=== PATIENT | female | born 1990 | race Two or more races ===

== ENCOUNTER 2022-09-30 12:54 | Emergency (ER) | payer MEDICAID, OTHER ==
[~2022-09-30] VITALS: Ht 165.1 cm; Wt 70.7 kg
[2022-09-30 13:48] LABS: Basophils # (auto) 0 10 ^3/uL (0-0.2); Basophils % (auto) 0.6 % (0.0-2.0); Eosinophils # (auto) 0 10 ^3/uL (0-0.8); Eosinophils % (auto) 0.8 % (0.0-7.0); Hematocrit 39.1 % (36.0-46.0); Hemoglobin 13.3 g/dL (12.2-16.2); Lymphocytes # (auto) 1.3 10 ^3/uL (0.4-5.4); Lymphocytes % (auto) 32.5 % (10.0-50.0); Mean Corpuscular Hemoglobin 27.9 pg (28.0-32.0); Mean Corpuscular Volume 82.1 fL (80.0-100.0); Monocytes # (auto) 0.3 10 ^3/uL (0-1.3); Monocytes % (auto) 7.7 % (0.0-12.0); Neutrophils # (auto) 2.2 10 ^3/uL (1.6-8.6); Neutrophils % (auto) 58.4 % (37.0-80.0); Nucleated Red Blood Cells % 0.1 %; Red Blood Cells 4.77 10^6/uL (4.0-5.20); Red Cell Distribution Width 14.3 % (11.8-14.3); White Blood Cell 3.9 10^3/uL (4.4-10.8)
[2022-09-30 14:32] LABS: Urine Bacteria NONE SEEN /hpf (None Seen); Urine Blood 1+ /uL (Negative); Urine Specific Gravity 1.004 (1.001-1.035); Urine WBC 1 /hpf (0 - 5)
[2022-09-30 15:09] LABS: Albumin 3.7 g/dL (3.4-5.0); BUN/Creatinine Ratio 8.6; Calcium 8.6 mg/dL (8.5-10.1); Potassium 3.8 mmol/L (3.5-5.1)
[2022-09-30 15:12] LABS: Bilirubin, Total 0.2 mg/dL (0.2-1.0); Total Protein 7.3 g/dL (6.4-8.2)
[2022-09-30 18:08] VITALS: BP 110/69
== END 2022-09-30 18:10 | disposition home or self-care (01) ==
LOC: ER 12:54
DX: R07.89 Other chest pain (principal); E78.5 Hyperlipidemia, unspecified
CPT/HCPCS: 36415; 71045; 80053; 81001; 84484; 85025; 93005

== ENCOUNTER 2022-10-01 16:20 | Emergency (ER) | payer MEDICAID ==
[~2022-10-01] VITALS: Ht 165.1 cm; Wt 75.0 kg
[2022-10-01 17:09] LABS: Basophils # (auto) 0 10 ^3/uL (0-0.2); Basophils % (auto) 0.4 % (0.0-2.0); Eosinophils # (auto) 0 10 ^3/uL (0-0.8); Eosinophils % (auto) 0.3 % (0.0-7.0); Hematocrit 38.9 % (36.0-46.0); Hemoglobin 13.2 g/dL (12.2-16.2); Lymphocytes # (auto) 1.1 10 ^3/uL (0.4-5.4); Lymphocytes % (auto) 23.7 % (10.0-50.0); Mean Corpuscular Hemoglobin 28.1 pg (28.0-32.0); Mean Corpuscular Volume 82.6 fL (80.0-100.0); Monocytes # (auto) 0.2 10 ^3/uL (0-1.3); Monocytes % (auto) 3.6 % (0.0-12.0); Neutrophils # (auto) 3.2 10 ^3/uL (1.6-8.6); Nucleated Red Blood Cells % 0.1 %; Red Blood Cells 4.71 10^6/uL (4.0-5.20); Red Cell Distribution Width 14.3 % (11.8-14.3); White Blood Cell 4.5 10^3/uL (4.4-10.8)
[2022-10-01] MEDS ORDERED: ACETAMINOPHEN 325 MG TAB PO ONE (17:15)
[2022-10-01 17:29] LABS: INR 0.95 (0.9-1.15); Partial Thromboplastin Time 25.5 sec (24.6-33.4)
[2022-10-01 17:46] LABS: Albumin 4.1 g/dL (3.4-5.0); BUN/Creatinine Ratio 8.1; Bilirubin, Total 0.4 mg/dL (0.2-1.0); Calcium 8.6 mg/dL (8.5-10.1); Magnesium 2.1 mg/dL (1.6-2.6); Potassium 3.6 mmol/L (3.5-5.1); Total Protein 7.4 g/dL (6.4-8.2)
[2022-10-01 22:35] VITALS: BP 125/67
== END 2022-10-01 23:12 | disposition home or self-care (01) ==
LOC: ER 16:20 → EDBD 16:20 → ER 22:38
DX: F41.8 Other specified anxiety disorders (principal)
CPT/HCPCS: 36415; 71045; 80053; 83735; 83880; 84484; 85025; 85610; 85730; 93005

== ENCOUNTER 2023-07-18 20:55 | Emergency (ER) | payer MEDICAID ==
[~2023-07-18] VITALS: Ht 162.6 cm; Wt 80.0 kg
[2023-07-18] MEDS ORDERED: methylPREDNISolone SOD SUCC 125 MG/2 ML VL IM ONE (21:15)
[2023-07-18] MEDS ORDERED: LEVO500T91 PO (21:49)
[2023-07-18 21:55] LABS: Basophils # (auto) 0 10 ^3/uL (0-0.2); Basophils % (auto) 0.7 % (0.0-2.0); Eosinophils # (auto) 0 10 ^3/uL (0-0.8); Eosinophils % (auto) 0.9 % (0.0-7.0); Hematocrit 37.3 % (36.0-46.0); Hemoglobin 12.4 g/dL (12.2-16.2); Lymphocytes # (auto) 1.2 10 ^3/uL (0.4-5.4); Lymphocytes % (auto) 25.9 % (10.0-50.0); Mean Corpuscular Hemoglobin 27.7 pg (28.0-32.0); Mean Corpuscular Hgb Conc. 33.4 g/dL (32.0-36.0); Monocytes # (auto) 0.3 10 ^3/uL (0-1.3); Neutrophils % (auto) 66.5 % (37.0-80.0); Nucleated Red Blood Cells % 0.1 %; Red Blood Cells 4.49 10^6/uL (4.0-5.20); Red Cell Distribution Width 13.9 % (11.8-14.3); White Blood Cell 4.6 10^3/uL (4.4-10.8)
[2023-07-18 22:16] LABS: Alanine Aminotransferase 27 U/L (7-40); Alkaline Phosphatase 101 U/L (46-116); Anion Gap 12 (5-15); Aspartate Aminotransferase 20 U/L (13-40); Calcium 9.6 mg/dL (8.5-10.1); Carbon Dioxide 21 mmol/L (20-30); Chloride 107 mmol/L (98-107); Glucose 93 mg/dL (74-106); Potassium 3.8 mmol/L (3.5-5.1); Sodium 140 mmol/L (136-145)
[2023-07-18 22:17] LABS: Albumin 4.5 g/dL (3.2-4.8); Bilirubin, Total 0.3 mg/dL (0.2-1.0); Total Protein 7.4 g/dL (5.7-8.2)
[2023-07-18 22:20] LABS: BUN/Creatinine Ratio 6.8 (10.0-20.0); Blood Urea Nitrogen < 5 mg/dL (9-23)
[2023-07-18 22:40] VITALS: PULSE 92; RESP 18; O2SAT 96
[2023-07-18] MEDS ORDERED: methylPREDNISolone SOD SUCC 125 MG/2 ML VL ONE (22:54)
[2023-07-18] MEDS ORDERED: PRED20TA2 PO (23:34)
[2023-07-18 23:40] VITALS: BP 127/74; PULSE 92; RESP 20; O2SAT 96
[2023-07-18] MEDS ORDERED: cefTRIAXone SOD 1,000 MG VL IM ONE (23:45)
== END 2023-07-18 23:48 | disposition home or self-care (01) ==
LOC: ER 20:55 → EDBD 20:55 → ER 23:48
DX: J06.9 Acute upper respiratory infection, unspecified (principal)
CPT/HCPCS: 36415; 71045; 80053; 85025; 96372; 99284; J2930

== ENCOUNTER 2024-02-08 23:08 | Inpatient (IN) | payer MEDICAID ==
[~2024-02-08] VITALS: Ht 165.1 cm; Wt 89.7 kg
[~2024-02-08 23:08] MED LIST: LEVO500T91 PO; PRED20TA2 PO
[2024-02-09 00:16] LABS: Basophils # (auto) 0 10 ^3/uL (0-0.2); Basophils % (auto) 0.6 % (0.0-2.0); Eosinophils # (auto) 0 10 ^3/uL (0-0.8); Eosinophils % (auto) 0.8 % (0.0-7.0); Hematocrit 38.7 % (36.0-46.0); Hemoglobin 13.1 g/dL (12.2-16.2); Lymphocytes # (auto) 1.5 10 ^3/uL (0.4-5.4); Mean Corpuscular Hemoglobin 27.8 pg (28.0-32.0); Mean Corpuscular Hgb Conc. 33.8 g/dL (32.0-36.0); Mean Corpuscular Volume 82.4 fL (80.0-100.0); Monocytes # (auto) 0.3 10 ^3/uL (0-1.3); Monocytes % (auto) 6.2 % (0.0-12.0); Neutrophils % (auto) 61.4 % (37.0-80.0); Red Cell Distribution Width 14.9 % (11.8-14.3); White Blood Cell 4.8 10^3/uL (4.4-10.8)
[2024-02-09 00:33] LABS: Alanine Aminotransferase 33 U/L (7-40); Albumin 4.5 g/dL (3.2-4.8); Alkaline Phosphatase 111 U/L (46-116); Anion Gap 11 (5-15); Aspartate Aminotransferase 22 U/L (13-40); BUN/Creatinine Ratio 10.7 (10.0-20.0); Bilirubin, Total 0.3 mg/dL (0.2-1.0); Blood Urea Nitrogen 8 mg/dL (9-23); Calcium 9.6 mg/dL (8.7-10.4); Carbon Dioxide 23 mmol/L (20-30); Chloride 106 mmol/L (98-107); Glucose 115 mg/dL (74-106); Lipase 42 U/L (12-53); Potassium 3.5 mmol/L (3.5-5.1); Sodium 140 mmol/L (136-145); Total Protein 7.3 g/dL (5.7-8.2)
[2024-02-09] MEDS: SODIUM CHLORIDE 0.9% 1,000 ML IVB ONE (01:24)
[2024-02-09] MEDS: ONDANSETRON HCL 4 MG/2 ML VIAL IV ONE (01:24)
[2024-02-09] MEDS: IOHEXOL 300 MG/ML 100ML BOTTLE IJ ONE (02:13)
[2024-02-09 04:45] VITALS: PULSE 98; RESP 19; O2SAT 98
[2024-02-09] MEDS: SODIUM CHLOR 0.9% PF (SALINE LOCK) 10ML VIAL/SYR IV SCH (05:41)
[2024-02-09] MEDS: MORPHINE SULFATE INJ 2 MG/ml SYRG IV PRN (05:50)
[2024-02-09] MEDS ORDERED: MORPHINE SULFATE INJ 2 MG/ml SYRG IV PRN (06:15)
[2024-02-09] MEDS ORDERED: NITROGLYCERIN 0.4 MG SL TAB SL PRN (06:15)
[2024-02-09 08:00] VITALS: PULSE 98; RESP 19; O2SAT 98
[2024-02-09 09:47] LABS: Urine Bacteria None Seen /hpf (None Seen)
[2024-02-09 09:55] LABS: Urine Blood 1+ /uL (Negative); Urine Clarity Clear (Clear); Urine Protein, UAD Negative (Negative); Urine Urobilinogen Normal (Negative); Urine WBC 1 /hpf (0 - 5); Urine pH 6.5 (5.0-9.0)
[2024-02-09 09:58] LABS: Urine Color Yellow (Yellow)
[2024-02-09] MEDS: MAALOX PLUS or MAALOX 30 ML PO ONE (12:07)
[2024-02-09] MEDS: DONNATAL 5ml ORAL Elix (BELLADONNA ALK-PHENOBARB) PO ONE (12:07)
[2024-02-09] MEDS: LIDOCAINE VISCOUS 2% 15ML UD MT ONE (12:07)
[2024-02-09] MEDS: ONDANSETRON HCL 4 MG/2 ML VIAL IV PRN (12:19)
[2024-02-09 22:00] VITALS: BP 111/71; PULSE 68; RESP 16; TEMP 98.1; O2SAT 96
[2024-02-10] VITALS (10 sets, daily range): BP systolic 103–132; BP diastolic 69–78; PULSE 65–94; RESP 16–20; TEMP 97.6–98.8; O2SAT 91–99
[2024-02-10 05:53] LABS: Basophils # (auto) 0 10 ^3/uL (0-0.2); Basophils % (auto) 0.6 % (0.0-2.0); Eosinophils # (auto) 0 10 ^3/uL (0-0.8); Eosinophils % (auto) 0.7 % (0.0-7.0); Hematocrit 37.9 % (36.0-46.0); Hemoglobin 12.7 g/dL (12.2-16.2); Lymphocytes # (auto) 1.3 10 ^3/uL (0.4-5.4); Lymphocytes % (auto) 38.6 % (10.0-50.0); Mean Corpuscular Hemoglobin 27.6 pg (28.0-32.0); Mean Corpuscular Hgb Conc. 33.6 g/dL (32.0-36.0); Mean Corpuscular Volume 82.2 fL (80.0-100.0); Monocytes # (auto) 0.2 10 ^3/uL (0-1.3); Monocytes % (auto) 6.4 % (0.0-12.0); Neutrophils # (auto) 1.8 10 ^3/uL (1.6-8.6); Neutrophils % (auto) 53.7 % (37.0-80.0); Nucleated Red Blood Cells % 0.2 %; Red Blood Cells 4.61 10^6/uL (4.0-5.20); Red Cell Distribution Width 14.3 % (11.8-14.3); White Blood Cell 3.3 10^3/uL (4.4-10.8)
[2024-02-10 06:12] LABS: Alanine Aminotransferase 30 U/L (7-40); Albumin 3.9 g/dL (3.2-4.8); Alkaline Phosphatase 89 U/L (46-116); Anion Gap 8 (5-15); Aspartate Aminotransferase 22 U/L (13-40); Calcium 9.3 mg/dL (8.7-10.4); Carbon Dioxide 23 mmol/L (20-30); Chloride 107 mmol/L (98-107); Glucose 88 mg/dL (74-106); Potassium 3.5 mmol/L (3.5-5.1); Sodium 138 mmol/L (136-145)
[2024-02-10 06:13] LABS: Bilirubin, Total 0.6 mg/dL (0.2-1.0); Total Protein 6.6 g/dL (5.7-8.2)
[2024-02-10 06:17] LABS: BUN/Creatinine Ratio 8.1 (10.0-20.0); Blood Urea Nitrogen < 5 mg/dL (9-23)
[2024-02-10] MEDS ORDERED: IOHEXOL 350 MG/ML 100ML IJ ONE (08:19)
[2024-02-10 08:48] LABS: Hepatitis B Surface Antigen Negative (Negative)
[2024-02-10 09:09] LABS: Hepatitis C Antibody Negative (Negative)
[2024-02-10] MEDS: HYDROcodone-ACET 5/325MG TAB PO PRN (18:33)
[2024-02-10] MEDS: DOCUSATE SOD 100 MG CAP PO PRN (18:33)
[2024-02-11] VITALS (10 sets, daily range): BP systolic 101–127; BP diastolic 61–85; PULSE 75–105; RESP 16–18; TEMP 97.8–98.3; O2SAT 91–97
[2024-02-11] MEDS: ACETAMINOPHEN 325 MG TAB PO PRN (00:27)
[2024-02-11] MEDS: cefTRIAXone 1GM/50ML D5W 50 ML IV SCH (09:32)
[2024-02-11 16:11] LABS: Amphetamine Screen, Urine Neg (NEGATIVE); Barbiturate Scree,Urine Neg (NEGATIVE); Benzodiazephine Screen, Urine Neg (NEGATIVE); Cocaine Screen, Urine Neg (NEGATIVE); Opiate Scree,Urine Pos (NEGATIVE)
[2024-02-11 16:12] LABS: Cannabinoid Screen, Urine Neg (NEGATIVE); Phencyclidine Screen, Urine Neg (NEGATIVE)
[2024-02-11] MEDS ORDERED: LORazepam 2MG/ML-1ML VIAL IV PRN (20:15)
[2024-02-11] MEDS: DICYCLOMINE HCL 10 MG CAP PO PRN (21:22)
[2024-02-11] MEDS: POLYETHYLENE GLYCOL 17 GM PWDR PO ONE (21:22)
[2024-02-12 01:00] VITALS: BP 106/61; PULSE 86; RESP 18; TEMP 97.7; O2SAT 93
[2024-02-12 05:00] VITALS: BP 99/61; PULSE 82; RESP 18; TEMP 97.4; O2SAT 95
[2024-02-12 08:00] VITALS: BP 114/63; PULSE 74; RESP 14; RESP 16; TEMP 98.1; O2SAT 95
[2024-02-12 12:59] VITALS: TEMP 36.7
[2024-02-12 13:00] VITALS: BP 116/73; PULSE 85; RESP 16; TEMP 98.9; O2SAT 98
== END 2024-02-12 13:00 | disposition home or self-care (01) | DRG 204 ==
LOC: EDBD 23:08 → ER 23:08 → TELE 02-09 06:16 → TELE-WESTW 02-09 23:48 → WEST WING 02-11 22:32
PROVIDERS: ADMIT Nurse Practitioner Family; ATTEND Nurse Practitioner Acute Care
DX: R55 Syncope and collapse (principal); K76.0 Fatty (change of) liver, not elsewhere classified; E66.9 Obesity, unspecified; J98.11 Atelectasis; E78.5 Hyperlipidemia, unspecified; Z83.3 Family history of diabetes mellitus; Z82.49 Family history of ischemic heart disease and other diseases of the circulatory system; Z68.32 Body mass index [BMI] 32.0-32.9, adult; Z79.899 Other long term (current) drug therapy
CPT/HCPCS: 36415; 70450; 70551; 71045; 71275; 74177; 76705; 76830; 76856; 80053; 80307; 81001; 82550; 83690; 84484; 84702; 85025; 85379; 86803; 87340; 93005; 93306; 93886; 93970; 95819; 97163; G0378; J2405